=== PATIENT | male | born 1985 | race Caucasian/White ===

== ENCOUNTER 2022-06-03 13:37 | Emergency (ER) | payer SELFPAY ==
[~2022-06-03] VITALS: Ht 172.7 cm; Wt 91.0 kg
[2022-06-03 13:46] VITALS: BP 177/111
[2022-06-03] MEDS ORDERED: BACITRACIN ZINC OINT UDPKT TOP ONE (14:30)
[2022-06-03] MEDS ORDERED: LIDOCAINE HCL/PF 1% 10 MG/ML 5ML VIAL INFIL ONE (14:30)
[2022-06-03] MEDS: TETANUS, DIPHTHERIA, PERTUSSIS VAC/PF 0.5ML (>10YR OLD) IM ONE ×2 (15:07→15:19)
== END 2022-06-03 17:03 ==
LOC: ER 14:06 → EDBD 14:06 → ER 17:03
DX: S61.211A Laceration without foreign body of left index finger without damage to nail, initial encounter (principal); W25.XXXA Contact with sharp glass, initial encounter; Y93.89 Activity, other specified; Y92.89 Other specified places as the place of occurrence of the external cause; Y99.8 Other external cause status
CPT/HCPCS: 12002; 73120; 90471; 90715; 99283; J3490